=== PATIENT | female | born 1980 | race Caucasian/White ===

== ENCOUNTER 2017-03-22 13:26 | Inpatient (IN) | payer OTHER ==
[~2017-03-22] VITALS: Ht 157.5 cm; Wt 58.1 kg
[2017-03-22] MEDS ORDERED: ONDANSETRON ODT 4 MG TAB.RAPDIS SL PRN (15:00)
[2017-03-22] MEDS ORDERED: ONDANSETRON 4 MG/2 ML VIAL IM PRN (15:00)
[2017-03-22] MEDS ORDERED: diphenhydrAMINE 50 MG CAPSULE PO PRN (15:00)
[2017-03-22] MEDS ORDERED: MAG HYDROX/AL HYDROX/SIMETH 30 ML LIQUID UDC PO PRN (15:00)
[2017-03-22] MEDS ORDERED: LORAZEPAM 1 MG TABLET PO PRN (15:00)
[2017-03-22] MEDS ORDERED: IBUPROFEN 400 MG TABLET PO PRN (15:00)
[2017-03-22] MEDS ORDERED: MIRALAX 17 GM POWD.PACK PO PRN (15:00)
[2017-03-22] MEDS ORDERED: ACETAMINOPHEN 325 MG TABLET PO PRN (15:00)
[2017-03-22] MEDS ORDERED: LORAZEPAM 2 MG/1 ML VIAL IM PRN (15:00)
[2017-03-22] MEDS ORDERED: LOPERAMIDE HCL 2 MG CAPSULE PO PRN ×2 (15:00)
--- NOTE | 2017-03-22 15:15 | NUR ---
INTAKE ASSESSMENT RECEIVED PT AOX4, STABLE, AMBULATORY. VITAL SIGNS WNL. PATIENT REPORTS NKA. PATIENT REPORTS NO SEIZURE HX. PATIENT STATES SHE BROUGHT MEDICATIONS WITH HER- EXPLAINED MED HANDLING AND PROTOCOL TO DISPOSE OF ALL NARCOTICS. EXPLAINED UNIT PROTOCOLS. PATIENT VERBALIZED UNDERSTANDING OF ALL INFO GIVEN. WILL ADMIT PATIENT UPON ADMISSION TO THIRD FLOOR.
[2017-03-22 15:44] LABS: *URINE HCG, QUAL NEGATIVE (NEGATIVE)
--- NOTE | 2017-03-22 15:46 | NUR ---
ADMISSION NOTE VITAL SIGNS BP 111/76 HR 99 O2 96% RR 16 TEMP 98.0 PAIN 0/10 HEIGHT 5'8 WEIGHT 128 LBS ALLERGIES NKA Patient is a 36 year old female admitted to [facility] on 03/22/17 at 1526. Patient is under the care of Dr. Neves for ETOH dependence. Patient denies suicidal or homicidal ideations at this time. patient denies being hospitalized in the last 30 days. Patient denies chest pain or SOB. Patient reports hx of anxiety, depression, ADHD, and PTSD. Upon assessments, patient's skin is intact. CIWA 6 upon admission. Patient reports with irritable mood. She reports feeling really tired and agitated. NKA. AOx4 and able to answer questions necessary for admission process. Patient is full code and regular diet. Patient denies seizure history. Patient reports her PCP is Dr. Nii Mcnamara. Breathing is even and unlabored. Patient ambulates with steady gait. patient reports this is her first time in treatment. She reports living with her . Patient report smoking one cigarette per day. Dr. Neves has been notified of patient's admission and has placed patient under observation. All needs have been met. Patient has been oriented to the room, staff, and unit. All safety measures in place per hospital policy. bed in lowest position and locked with side rails x2 and padded and call mcintyre within reach. Will monitor closely. Substance Abuse ETOH: 1 bottle of wine daily for 1 week, last drank 1 bottle 03/22/17 at 0900.
[2017-03-22 15:49] LABS: BASOPHILS # (AUTO) 0.1 K/uL (0.0-8.0); BASOPHILS % (AUTO) 0.4 % (0.0-2.0); BILIRUBIN,TOTAL 0.4 mg/dL (0.2-1.0); CREATININE 0.7 mg/dL (0.6-1.3); EOSINOPHILS # (AUTO) 0.1 K/uL (0.0-0.7); EOSINOPHILS % (AUTO) 0.7 % (0.0-7.0); HEMATOCRIT 44.7 % (37-47); HEMOGLOBIN 15.3 G/DL (12.0-16.0); LYMPHOCYTES # (AUTO) 4.5 K/UL (0.8-4.8); LYMPHOCYTES % (AUTO) 25.4 % (20.5-51.5); MEAN CORPUSCULAR HEMOGLOBIN 31.7 UUG (27.0-31.0); MEAN CORPUSCULAR HGB CONC 34 g/dL (32.0-37.0); MEAN CORPUSCULAR VOLUME 92.4 FL (81.0-99.0); MONOCYTES # (AUTO) 0.5 K/UL (0.1-1.30); MONOCYTES % (AUTO) 2.7 % (0.0-11.0); NEUTROPHILS # (AUTO) 12.3 K/UL (1.8-8.9); NEUTROPHILS % (AUTO) 70.8 % (38.5-71.5); PLATELET COUNT (AUTO) 401 K/UL (150-450); POTASSIUM 4.4 mmol/L (3.5-5.1); RED BLOOD CELL COUNT(AUTO) 4.83 MIL/UL (4.2-5.4); TOTAL PROTEIN, SERUM 9.2 g/dL (6.4-8.2); WHITE BLOOD COUNT (AUTO) 17.5 K/UL (4.0-11.2)
[2017-03-22 15:55] LABS: *AMPHETAMINE, URINE NEGATIVE (NEGATIVE); *BARBITURATE, URINE NEGATIVE (NEGATIVE); *CANNABINOID, URINE NEGATIVE (NEGATIVE); *COCCAINE, URINE NEGATIVE (NEGATIVE); *OPIATE, URINE NEGATIVE (NEGATIVE); *PHENCYCLIDINE SCREEN,URINE NEGATIVE (NEGATIVE)
[2017-03-22 16:00] VITALS: BP 122/78
[2017-03-22] MEDS ORDERED: THIAMINE HCL 200 MG/2 ML VIAL IM ONE (16:00)
[2017-03-22] MEDS ORDERED: PRAZ2CAP2 PO (16:05)
[2017-03-22] MEDS ORDERED: FLUO40CA49 PO (16:05)
[2017-03-22] MEDS ORDERED: ATOM60CA PO (16:05)
[2017-03-22] MEDS ORDERED: CLON0.1T PO (16:05)
[2017-03-22] MEDS ORDERED: ATOM25CA PO (16:05)
[2017-03-22] MEDS ORDERED: PRAZ5CAP2 PO (16:05)
[2017-03-22] MEDS ORDERED: TRAZ-147 PO (16:05)
--- NOTE | 2017-03-22 18:24 | NUR ---
END OF SHIFT NOTE ADMITTED PATIENT THIS SHIFT FOR ETOH DEPENDENCE. PATIENT REPORTS FEELING TIRED AND AGITATED UPON ADMISSION. PATIENTS CIWA 6 UPON ADMISSION. PATIENT HAS BEEN SLEEPING SINCE ADMISSION PROCESS WITH RR EVEN AND UNLABORED AT 16, BED LOCKED AND IN LOWEST POSITION AND CALL TORRES WITHIN REACH. THIAMINE INJECTION GIVEN PER ORDERS AND NO OTHER MEDICATIONS ADMINISTERED. VITAL SIGNS STABLE. PT DENIES S/I OR H/I. ALL SAFETY MEASURES IN PLACE. WILL ENDORSE TO NIGHT NURSE.
[2017-03-22 20:00] VITALS: BP 115/67
--- NOTE | 2017-03-22 20:00 | NUR ---
START OF SHIFT NOTE RECEIVED REPORT FROM DAY SHIFT NURSE. PATIENT IS A 36 YEAR OLD FEMALE NEWLY ADMITTED FOR ETOH DEPENDENCE. UPON ADMISSION, PATIENT REPORTS DRINKING 1 BOTTLE OF WINE DAILY FOR A WEEK. LAST ONE WAS PRIOR TO ADMISSION. PATIENT IS UNDER OBSERVATION. PRN MEDICATION AVAILABLE. FIRST TIME IN DETOX. SKIN INTACT. PATIENT DID NOT REQUIRE ANY PRN MEDICATION. LAST CIWA 6. ON FALL /SEIZURE PRECAUTION. SAFETY MEASURES IN PLACE. CALL LIGHT IN REACH. WILL CONTINUE TO MONITOR.
[2017-03-23] VITALS: BP 135/87
--- NOTE | 2017-03-23 02:48 | NUR ---
PRN ATIVAN ADMINISTRATION PATIENT NOTED TO BE VERY ANXIOUS, RESTLESS, UNABLE TO SIT STILL, NOTED WITH TREMORS . PRN ATIVAN GIVEN. ANGELA 7. RELAXATION TECHNIQUE PROVIDED. WILL MONITOR FOR EFFECTIVENESS Addendum: 03/23/17 at 0628 by IRENE GUILLERMO LVN ERROR: THIS CHARTING IS FOR ANOTHER PATIENT
[2017-03-23 04:00] VITALS: BP 135/84
[2017-03-23 05:06] LABS: HEPATITIS B SURFACE AG Negative (Negative)
--- NOTE | 2017-03-23 07:18 | NUR ---
START OF SHIFT NOTE PATIENT IS A 36 YEAR OLD FEMALE NEWLY ADMITTED FOR ETOH DEPENDENCE. UPON ADMISSION, PATIENT REPORTS DRINKING 1 BOTTLE OF WINE DAILY FOR A WEEK. LAST ONE WAS PRIOR TO ADMISSION. PATIENT IS UNDER OBSERVATION. PRN MEDICATION AVAILABLE. FIRST TIME IN DETOX. SKIN INTACT. PATIENT IN HER MOST OF THE SHIFT. PATIENT WAS GIVEN PRN ZOFRAN . ON FALL /SEIZURE PRECAUTION. SAFETY MEASURES IN PLACE. CALL LIGHT IN REACH. WILL CONTINUE TO MONITOR. SLEPT 10 HOURS. FLUID INTAKE OF 500 ML. VOIDED X 2. NO BM. LAST CIWA 2.
--- NOTE | 2017-03-23 07:19 | NUR ---
Start of Shift Notes: Received patient in her room. Alert and verbally responsive. Oriented x 4. Able to make needs known. Respirations even and unlabored. No SOB noted. Skin warm and dry to touch. Abdomen soft and non-distended with (+) BS in all 4 quadrants. No complains of N/V/D or constipation noted. Voids independently. No complains of dysuria noted. Ambulatory ad beau with steady gait. Patient is a 36 year old female admitted for ETOH dependence. Prior to admission patient was using 1 bottle of wine daily x 1 week. PRNs are placed at this time. MD to assess taper need today. NKA. FULL CODE. Regular diet. On fall and seizure precautions. Educated patient on the current plan of care for the day and her medication regimen. Encouraged oral fluid intake and encouraged group participation to learn new skills to prevent relapse. Siderails up and padded for safety. Call light kept in reach. Will continue to monitor closely.
[2017-03-23 08:00] VITALS: BP 155/84
[2017-03-23] MEDS ORDERED: TUBERCULIN,PURIF.PROT.DERIV. 5 TU/0.1 ML TEST ID ONE (09:00)
[2017-03-23] MEDS: CLONIDINE HCL 0.1 MG TABLET PO PRN (09:16)
[2017-03-23] MEDS: FOLIC ACID 1 MG TABLET PO SCH (09:16)
[2017-03-23] MEDS: LORAZEPAM 1 MG TABLET PO PRN ×2 (09:16→13:18)
--- NOTE | 2017-03-23 09:16 | NUR ---
Clonidine 0.1mg PO/Ativan 1 mg PO given: CIWA 9, patient presented with anxiety, nervousness, facial flushing, sweating, and gross tremors. Denies S/I or H/I noted. Denies AV hallucinations. Also noted with blood pressure 155/84. Denies headache, dizziness, nausea or vomiting. Medicated patient with Clondine 0.1mg PO and Ativan 1 mg PO as ordered. Will monitor for effectiveness.
[2017-03-23] MEDS: THIAMINE HCL 100 MG TABLET PO SCH (09:17)
[2017-03-23] MEDS: MULTIVITAMINS,THERAPEUTIC TABLET PO SCH (09:17)
[2017-03-23] MEDS ORDERED: ATOMOXETINE HCL PO SCH ×2 (10:15)
--- NOTE | 2017-03-23 10:16 | NUR ---
Re-assessment: CIWA 4. Patient noted with less tremors, less anxiety, less sweats and less agitation noted. Seen laying in her bed, watching TV. BP 139/87. Pulse 63. PRN Clonidine and Ativan were effective.
--- NOTE | 2017-03-23 10:40 | NUR ---
Psych MD Communication: Patient seen and examined by Dr. Alejandro (psych) with new orders. Orders noted and carried out. Patient education was provided.
--- NOTE | 2017-03-23 10:57 | NUR ---
MD Communication: labs Patient noted with WBC 17.5H. Patient denies any complains of chills, or dysuria. Patient is afebrile. NNO made from MD. To continue to monitor the patient.
[2017-03-23] MEDS: FLUOXETINE HCL 20 MG CAPSULE PO SCH (11:20)
[2017-03-23 12:00] VITALS: BP 136/71
[2017-03-23] MEDS: ATOMOXETINE 25 MG PO SCH (13:18)
--- NOTE | 2017-03-23 13:18 | NUR ---
Ativan 1 mg PO given: CIWA 5. Patient noted with gross tremors and mild sweats. Medicated patient with Ativan 1 mg PO per CIWA score of 5. Will monitor for effectiveness.
--- NOTE | 2017-03-23 14:18 | NUR ---
Re-assessment: CIWA 4. Patient noted with less anxiety, less sweating and less tremors noted.
[2017-03-23] MEDS ORDERED: LORAZEPAM 1 MG TABLET PO PRN ×2 (15:00)
[2017-03-23 16:00] VITALS: BP 132/97
[2017-03-23] MEDS ORDERED: TRAZODONE 100 MG TABLET PO SCH (18:00)
[2017-03-23] MEDS ORDERED: Medication Not On Formulary EA (Prazosin Hcl 1 CAP) PO SCH (18:00)
--- NOTE | 2017-03-23 19:18 | NUR ---
End of Shift Notes: Patient continues to be on PRN Ativan at this time to manage her withdrawal symptoms from ETOH. VS monitored closely. BP at 0900 155/98. Medicated patient with Clonidine 0.1mg PO as ordered. No adverse reactions noted. No complains of headache, dizziness, or lightheadedness noted. Withdrawal symptoms were closely monitored. Patient presented with anxiety, mild agitation, sweating and gross tremors. Initial CIWA 9, medicated patient with Ativan 1 mg PO at 0916 and at 1318 per CIWA score between 5-15 as ordered. No adverse reactions noted. Per patient, Ativan has helped her with her withdrawal symptoms. Last CIWA [address] Alejandro (psych) with new orders. Orders noted. Unable to participate in group and activities due to her withdrawal symptoms. All needs met and attended. Call light in reach. Will continue to monitor closely.
--- NOTE | 2017-03-23 19:30 | NUR ---
START OF SHIFT NOTE ASSUMED CARE FOR PATIENT, 36YRS OLD FEMALE IN TO DETOX OFF ALCOHOL, PLAN OF CARE DISCUSSED, PT UNDERSTOOD. IL N MEDS AVAILABLE FOR WITHDRAWAL SYMPTOMS. CALL LIGHT WITHIN REACH, WILL CONTINUE TO MONITOR FOR COMFORT AND SAFETY.
[2017-03-23 20:00] VITALS: BP 132/98
[2017-03-23] MEDS: PRAZOSIN HCL 1 MG CAPSULE PO SCH (20:55)
[2017-03-23] MEDS: TRAZODONE 100 MG TABLET PO SCH (20:55)
[2017-03-24] VITALS: BP 133/98
[2017-03-24 04:00] VITALS: BP 126/97
--- NOTE | 2017-03-24 06:23 | NUR ---
END OF SHIFT NOTE: Patient endorsed to day shift nurse in stable condition. Report given. Patient is a 36 year old female admitted to [facility] for ETOH dependence on 03/21/2017.. Patient reports. NKA, Patient is Full Code, Regular Diet. Fall and Seizures Precautions. Patients denies Seizures Hx r/t withdrawal from substances. HX . Anxiety, Depression, Bipolar Disorder, PTSD, Tobacco dependence, and Substance abuse.VS at 0400 WNL. Respirations unlabored and even. Skin is intact, warm and dry to touch. CIWA:4 . Patient denies SI/HI. Encouraged fluids as tolerated. All needs met. Safety measures on place. Call light within reach, bed in lowest position and locked, padded rails up bilaterally. Will continue to monitor closely.
[2017-03-24 08:00] VITALS: BP 141/95
[2017-03-24] MEDS: MULTIVITAMINS,THERAPEUTIC TABLET PO SCH (09:07)
[2017-03-24] MEDS: FLUOXETINE HCL 20 MG CAPSULE PO SCH (09:07)
[2017-03-24] MEDS: THIAMINE HCL 100 MG TABLET PO SCH (09:07)
[2017-03-24] MEDS: CLONIDINE HCL 0.1 MG TABLET PO PRN (09:07)
[2017-03-24] MEDS: ATOMOXETINE 60 MG PO SCH (09:07)
[2017-03-24] MEDS: FOLIC ACID 1 MG TABLET PO SCH (09:07)
--- NOTE | 2017-03-24 09:07 | NUR ---
Clonidine 0.1mg PO given: Patient noted with mild tremors, anxiety, and mild sweats. CIWA 4. Medicated patient with Clonidine 0.1mg PO as ordered. Will monitor for effectiveness.
--- NOTE | 2017-03-24 10:07 | NUR ---
Re-assessment: Per patient, PRN Clonidine was effective in reducing patient's anxiety, and mild tremors.
--- NOTE | 2017-03-24 10:13 | NUR ---
EKG results: Results of patient's EKG were given to Dr. Alejandro. Per MD, repeat EKG in AM.
--- NOTE | 2017-03-24 11:45 | NUR ---
Therapist prompted client to attend daily group sessions, and client stated that she would attend group therapy today.
[2017-03-24 12:00] VITALS: BP 137/93
[2017-03-24] MEDS: ATOMOXETINE 25 MG PO SCH (12:21)
[2017-03-24] MEDS ORDERED: TRAZ-147 PO (12:28)
[2017-03-24] MEDS ORDERED: CLON0.1T14 PO (12:28)
[2017-03-24 14:58] LABS: *AMPHETAMINE, URINE NEGATIVE (NEGATIVE); *BARBITURATE, URINE NEGATIVE (NEGATIVE); *CANNABINOID, URINE NEGATIVE (NEGATIVE); *COCCAINE, URINE NEGATIVE (NEGATIVE); *OPIATE, URINE NEGATIVE (NEGATIVE); *PHENCYCLIDINE SCREEN,URINE NEGATIVE (NEGATIVE)
[2017-03-24 16:00] VITALS: BP 134/92
--- NOTE | 2017-03-24 19:00 | NUR ---
End of Shift Notes: Patient continues to be on PRNs at this time to manage her withdrawal symptoms from ETOH. Patient with discharge plans for tomorrow. UDS in and resulted. VS monitored closely.. Withdrawal symptoms were closely monitored. Patient presented with anxiety, and fine tremors. Initial CIWA 4. Last CIWA 2. Unable to participate in group and activities due to her withdrawal symptoms. All needs met and attended. Call light in reach. Will continue to monitor closely.
--- NOTE | 2017-03-24 19:11 | NUR ---
Start of shift note Received report form day shift nurse. Pt is a 36 yo female, A+Ox4, [facility]. Pt has NKA, is on Full Code status, and on Regular diet. Pt is on Fall and Seizure precautions. Pt has HX of Anxiety, Depression, ADHD, and PTSD. Pt is on PRN medications. No s/s of distress noted at this time. Respirations even and unlabored. Will continue to monitor. Addendum: 03/24/17 at 2252 by KASI LEIJA LVN Pt is due for discharge tomorrow
[2017-03-24 20:32] VITALS: BP 148/109
[2017-03-24] MEDS: TRAZODONE 100 MG TABLET PO SCH (20:33)
[2017-03-24] MEDS: PRAZOSIN HCL 1 MG CAPSULE PO SCH (20:34)
[2017-03-25 00:18] VITALS: BP 143/92
[2017-03-25 04:08] VITALS: BP 134/87
--- NOTE | 2017-03-25 07:03 | NUR ---
End of shift note Pt is a 36 yo female, A+Ox4, presenting to [facility] for ETOH dependence. Pt has NKA, is on Full Code status, and on Regular diet. Pt is on Fall and Seizure precautions. Pt has HX of Anxiety, Depression, ADHD, and PTSD. Pt is on PRN medications, tolerated well, and is due for discharge today. Pt slept for a total of 8 HRS. Last CIWA: 1 @0400. No s/s of distress noted at this time. Respirations even and unlabored. Will endorse to day shift nurse.
[2017-03-25 08:03] VITALS: BP 139/99
--- NOTE | 2017-03-25 08:05 | NUR ---
START OF SHIFT NOTE patient is alert and orientated X4. she is up early this morning walking around the unit. Vital signs are stable and WNL. No PRNS were given last night. Patient slept 8 hours per night nurse and CIWA was a 1. All safety measures in place. And all needs have been met this morning. Will continue to monitor patient.
[2017-03-25] MEDS: FOLIC ACID 1 MG TABLET PO SCH (08:58)
[2017-03-25] MEDS: FLUOXETINE HCL 20 MG CAPSULE PO SCH (08:58)
[2017-03-25] MEDS: THIAMINE HCL 100 MG TABLET PO SCH (08:58)
[2017-03-25] MEDS: ATOMOXETINE 60 MG PO SCH (08:58)
[2017-03-25] MEDS: MULTIVITAMINS,THERAPEUTIC TABLET PO SCH (08:58)
--- NOTE | 2017-03-25 09:47 | NUR ---
DISCHARGE NOTE Patient is in stable condition. Vital signs WNL. patient is alert and orientated X4, skin intact. Patient denies any suicidal or homicidal ideations. All discharge paperwork completed dated and signed. Patient educated about discharge instructions, what to do after discharge, when to contact MD as well as the s/s reportable to MD. Patient verbalized understanding. Patient Last CIWA 2. Patient was discharge from [facility] on 03/25/17 at 0947. Patient left with all of her belongings and prescriptions. Patient left with all her home medications. MD has been contacted and notified of patients discharge.
== END 2017-03-25 09:47 | disposition other institution (70) | DRG 895 ==
LOC: SRC 14:55
PROVIDERS: ADMIT Internal Medicine; ATTEND Internal Medicine
PROC: HZ2ZZZZ Detoxification Services for Substance Abuse Treatment (ICD-10-PCS; principal; 2017-03-22)
PROC: HZ31ZZZ Individual Counseling for Substance Abuse Treatment, Behavioral (ICD-10-PCS; 2017-03-23)
PROC: HZ41ZZZ Group Counseling for Substance Abuse Treatment, Behavioral (ICD-10-PCS; 2017-03-24)
DX: F10.230 Alcohol dependence with withdrawal, uncomplicated (principal); F32.9 Major depressive disorder, single episode, unspecified; F43.10 Post-traumatic stress disorder, unspecified; Z81.8 Family history of other mental and behavioral disorders; Y90.9 Presence of alcohol in blood, level not specified; T14.90 Injury, unspecified; Y09 Assault by unspecified means; Z79.899 Other long term (current) drug therapy; F90.9 Attention-deficit hyperactivity disorder, unspecified type
CPT/HCPCS: 36415; 70030-TC; 80307; 83690; 83735; 84703; 85025; 86580; 86592; 86705; 86803; 87340; 87806; 93005; A4663; G0480; J3411; Q0162